=== PATIENT | male | born 1960 | race Caucasian/White ===

== ENCOUNTER 2016-06-05 08:00 | Day surgery (SDC) | payer MEDICARE, SELFPAY ==
[~2016-06-05 08:00] MED LIST: Sodium Chloride 0.9% 1,000 ML IV SCH
[2016-06-05] MEDS ORDERED: fentaNYL 100 MCG/2 ML SDV ONE (09:04)
[2016-06-05] MEDS ORDERED: Propofol 200 MG/20 ML SDV ONE (09:04)
[2016-06-05] MEDS ORDERED: Midazolam 1 MG/ML 2 ML SDV ONE (09:04)
[2016-06-05 11:42] VITALS: BP 116/71
--- NOTE | 2016-06-06 09:00 | OR ---
DATE OF PROCEDURE: 06/05/2016 PROCEDURE: Colonoscopy. FINDINGS: Normal colonoscopy. PREOPERATIVE DIAGNOSIS: GI bleeding. POSTOPERATIVE DIAGNOSIS: GI bleeding. COMPLICATIONS: None. SPECIAL NEEDS NANNY: None. INDICATIONS: A 55-year-old male with history of GI bleeding a few months ago. Risks, benefits, alternatives, and limitations, including, but not limited to infection, bleeding, and perforation were explained to the patient and he wished to proceed. PROCEDURE IN DETAIL: The patient was placed in left lateral decubitus position. Digital rectal exam was performed without abnormality. The scope was introduced and advanced atraumatically to the ileocecal valve. The scope was brought back to the ascending, transverse, descending colon, and retroflexed. No masses, no polyps. The prep was moderately acceptable due to retained solid and liquid stool. Suction irrigation maneuvers were performed to see approximately 90% of the luminal surface. The patient tolerated the procedure well. Richard Diane MD /[id number]
== END 2016-06-05 11:43 | disposition home or self-care (01) ==
LOC: JP.SDS 08:00
PROVIDERS: ATTEND Surgery
PROC: 0DJD8ZZ Inspection of Lower Intestinal Tract, Via Natural or Artificial Opening Endoscopic (ICD-10-PCS; principal; 2016-06-05)
DX: K92.1 Melena (principal)
CPT/HCPCS: 45378; J2250; J2704; J3010

== ENCOUNTER 2022-04-18 15:16 | Emergency (ER) | payer MEDICARE ==
[2022-04-18 15:29] VITALS: BP 147/69; PULSE 67
== END 2022-04-18 17:08 | disposition home or self-care (01) ==
LOC: JP.ED 15:16
DX: R07.89 Other chest pain (principal); R53.83 Other fatigue; M54.42 Lumbago with sciatica, left side; Z88.5 Allergy status to narcotic agent; Z91.010 Allergy to peanuts
CPT/HCPCS: 36415; 80048; 84443; 84484; 85025; 93005; 93010; 99284; 99285